=== PATIENT | female | born 1940 | race Caucasian/White ===

== ENCOUNTER 2017-10-30 10:46 | Emergency (ER) | payer MEDICARE, OTHER ==
[~2017-10-30] VITALS: Ht 154.9 cm; Wt 70.3 kg
[~2017-10-30 10:46] MED LIST: ACET325 PO; ALBU3IS INH; ALBU90OI INH; AMLO5 PO; ANORO ELLIPTA1 EACH INH; ASCO500 PO; ASPI325 PO; ASPI81EC; ASPI81EC PO; AZIT250 PO; AZIT500 PO; BENAML10/5; BENZ100A PO; CEPH500 PO; CIPR500 PO; CITA20 PO; CLON.5 PO; CLON1; CLON1 PO; CLOP75 PO; CODACE30 PO; CREON 12000 UNIT PO; CREON DR 12,001 EACH PO; CYCL10 PO; Clotrim Antifun15 GM TP; D3-20002000 UNIT PO; DOCU100 PO; ESTMED1.5T PO; ESTR.1TPBW TOP; ESTRADIOL PO; ESTRADIOL1 MG PO; ESTROVEN; EZET10 PO; FLUC150A PO; FOLI400; GEMF600 PO; HYDACE10B PO; HYDACE5325 PO; HYDCHL12.5 PO; HYDR-86 PO; HYDR1TAB94 PO; Keflex500 MG PO; LAVAP17G PO; LEVFLO500 PO; LIVALO1 MG PO; LIVALO4 MG PO; LOSA50 PO; LOSARTAN PO; METR500 PO; MULVITB PO; Macrobid 100 M100 MG PO; Mobic7.5 MG PO; Multi-Day Vita1 EACH PO; NICO14TP TOP; NYST100SU PO; NYST100SU SS; Norco 10-325 T1 EACH PO; OMEP20ER PO; PANT40 PO; PRAV20; PRED20 PO; PRIM50 PO; PROBIOTIC1 EAC1 PO; PROM25 PO; PROP10 PO; PSYL5.85P PO; Percocet 5-3251 EACH PO; Phenergan/Code480 ML PO; Prednisone20 MG PO; Pyridium200 MG PO; RABE20; SENN187 PO; Super B Comple150 MG PO; TEMA15 PO; TOCO400; VITAMIN D PO; ZINC220 PO; [UNRECOGNIZED DRUG - OTHER] PO; [UNRECOGNIZED DRUG - OTHER] PO
[2018-04-12] MEDS ORDERED: ASPI81CH PO (19:07)
== END 2017-10-30 11:39 | disposition home or self-care (01) ==
LOC: ER 10:46
DX: M79.644 Pain in right finger(s) (principal); I10 Essential (primary) hypertension; M19.90 Unspecified osteoarthritis, unspecified site; K21.9 Gastro-esophageal reflux disease without esophagitis; E78.5 Hyperlipidemia, unspecified; Z88.2 Allergy status to sulfonamides; Z88.5 Allergy status to narcotic agent; Z88.0 Allergy status to penicillin; Z79.82 Long term (current) use of aspirin; Z79.899 Other long term (current) drug therapy; Z79.52 Long term (current) use of systemic steroids; Z90.49 Acquired absence of other specified parts of digestive tract; F17.200 Nicotine dependence, unspecified, uncomplicated
CPT/HCPCS: 29125; 99282

== ENCOUNTER 2018-02-11 05:16 | Emergency (ER) | payer MEDICARE, OTHER ==
[~2018-02-11] VITALS: Ht 147.3 cm; Wt 74.8 kg
[2018-02-11 06:06] LABS: BASOPHILS ABSOLUTE AUTO 0.05 K/mm3 (0.00-0.23); BASOPHILS PERCENT AUTO 1 % (0-2); EOSINOPHILS ABSOLUTE AUTO 0.37 K/mm3 (0.00-0.68); EOSINOPHILS PERCENT AUTO 6 % (0-6); Hematocrit 47.1 % (33.0-51.0); Hemoglobin 14.8 g/dL (11.5-16.0); IMMATURE GRAN ABSOLUTE AUTO 0.04 K/mm3 (0.00-0.10); IMMATURE GRAN PERCENT AUTO 1 % (0-1); LYMPHOCYTES PERCENT AUTO 30 % (21-46); MONOCYTES ABSOLUTE AUTO 0.71 K/mm3 (0.16-1.47); MONOCYTES PERCENT AUTO 11 % (4-13); Mean Corpuscular HGB 29.4 pg (26.0-34.0); Mean Corpuscular HGB Conc 31.4 g/dL (31.5-36.5); Mean Corpuscular Volume 94 fL (80-100); Mean Platelet Volume 9.9 fL (9.1-12.4); NEUTROPHILS ABSOLUTE AUTO 3.47 K/mm3 (1.96-9.15); NEUTROPHILS PERCENT AUTO 52 % (41-73); Platelet Count 169 K/mm3 (150-400); RDW Coefficient Variation 14.7 % (11.7-14.2); RDW Standard Deviation 50.6 fL (35.1-46.3); Red Blood Cell Count 5.04 M/mm3 (3.80-5.20); White Blood Cell Count 6.64 K/mm3 (4.00-11.30)
[2018-02-11 06:23] LABS: Alanine Aminotransfer (ALT/SGP 31 U/L (12-78); Albumin, Blood 3.3 g/dL (3.4-5.0); Albumin/Globulin Ratio 0.9 (0.8-1.8); Alk Phos 67 U/L (50-136); Anion Gap 7 mmol/L (6-16); Aspartate Aminotrans (AST/SGOT 26 U/L (12-37); Bilirubin, Total 0.5 mg/dL (0.1-1.0); Blood Urea Nitrogen 18 mg/dL (8-24); Bun/Creatinine Ratio 17.3 (12.0-20.0); CO2, Blood 27 mmol/L (21-32); Chloride, Blood 109 mmol/L (98-108); Creatinine, Blood 1.04 mg/dL (0.40-1.00); Globulin, Blood 3.6 g/dL (2.2-4.0); Glomerular Filtration Rate 54 (60-); Glucose, Blood 102 mg/dL (70-99); Sodium, Blood 143 mmol/L (136-145); Total Protein, Blood 6.9 g/dL (6.4-8.2); Troponin I <0.015 ng/mL (0.000-0.040)
== END 2018-02-11 08:14 | disposition home or self-care (01) ==
LOC: ER 05:16
PROVIDERS: Emergency Medicine
DX: R07.89 Other chest pain (principal); Z88.0 Allergy status to penicillin; Z88.5 Allergy status to narcotic agent; Z88.2 Allergy status to sulfonamides; Z79.899 Other long term (current) drug therapy; Z79.82 Long term (current) use of aspirin; Z79.52 Long term (current) use of systemic steroids; K21.9 Gastro-esophageal reflux disease without esophagitis; I10 Essential (primary) hypertension; Z86.73 Personal history of transient ischemic attack (TIA), and cerebral infarction without residual deficits; E78.00 Pure hypercholesterolemia, unspecified; I25.10 Atherosclerotic heart disease of native coronary artery without angina pectoris; J44.9 Chronic obstructive pulmonary disease, unspecified
CPT/HCPCS: 36415; 71046; 76775; 80053; 83690; 83880; 84484; 85025; 93005; 93010; 99284

== ENCOUNTER 2018-05-11 09:48 | Day surgery (SDC) | payer MEDICARE, OTHER ==
[~2018-05-11 09:48] MED LIST changes: +ASPI81CH PO
[2018-05-11 11:38] LABS: Performing Lab VERACYTE; Test Name FNA
== END 2018-05-11 23:31 | disposition home or self-care (01) ==
LOC: US 09:48
PROVIDERS: Internal Medicine
DX: E04.1 Nontoxic single thyroid nodule (principal)
CPT/HCPCS: 10022; 76942

== ENCOUNTER 2019-03-15 09:04 | Day surgery (SDC) | payer MEDICARE, OTHER ==
[~2019-03-15] VITALS: Ht 152.4 cm; Wt 66.9 kg
[~2019-03-15 09:04] MED LIST changes: +CREON DR 12,001 EACH; +DICLO GEL1 EACH; +EZET10; +NITR.4SL
== END 2019-03-15 14:38 | disposition home or self-care (01) ==
LOC: ORSCSDS 09:04
PROVIDERS: Orthopaedic Surgery
PROC: 0LX70ZZ Transfer Right Hand Tendon, Open Approach (ICD-10-PCS; principal; 2019-03-15 10:15)
PROC: 0LX50ZZ Transfer Right Lower Arm and Wrist Tendon, Open Approach (ICD-10-PCS; principal; 2019-03-15 10:15)
DX: M18.11 Unilateral primary osteoarthritis of first carpometacarpal joint, right hand (principal); I10 Essential (primary) hypertension; I25.10 Atherosclerotic heart disease of native coronary artery without angina pectoris; J44.9 Chronic obstructive pulmonary disease, unspecified; G47.33 Obstructive sleep apnea (adult) (pediatric); Z87.891 Personal history of nicotine dependence; Z79.899 Other long term (current) drug therapy; Z79.82 Long term (current) use of aspirin
CPT/HCPCS: J1100; J1885; J2370; J2405; J2704; J3010; J3370

== ENCOUNTER → 2019-07-30 | Outpatient (CLI) | payer MEDICARE, OTHER ==
[2019-08-03 15:07] LABS: M-SPIKE, % Not Observed % (Not Observed); PROTEIN,TOTAL,URINE 4.9 mg/dL (Not Estab.)
== END | disposition home or self-care (01) ==
LOC: LAB SHORT 09:16 → LAB 09:16 → LAB FUT 07-27 13:35
PROVIDERS: Internal Medicine
DX: Z00.01 Encounter for general adult medical examination with abnormal findings (principal); R53.81 Other malaise
CPT/HCPCS: 81050; 84166; 86335

== ENCOUNTER 2019-08-26 11:36 | Emergency (ER) | payer MEDICARE, OTHER ==
[~2019-08-26] VITALS: Ht 160 cm; Wt 63.5 kg
== END 2019-08-26 12:22 | disposition home or self-care (01) ==
LOC: ER 11:36
DX: L29.9 Pruritus, unspecified (principal); T50.B95A Adverse effect of other viral vaccines, initial encounter; I10 Essential (primary) hypertension; K21.9 Gastro-esophageal reflux disease without esophagitis; Z86.73 Personal history of transient ischemic attack (TIA), and cerebral infarction without residual deficits; Z87.891 Personal history of nicotine dependence; Z88.0 Allergy status to penicillin; Z88.2 Allergy status to sulfonamides; Z88.8 Allergy status to other drugs, medicaments and biological substances; Z88.5 Allergy status to narcotic agent; Z79.899 Other long term (current) drug therapy; Z79.82 Long term (current) use of aspirin
CPT/HCPCS: 99282; J1100

== ENCOUNTER 2020-07-14 14:50 | Emergency (ER) | payer MEDICARE, OTHER ==
[~2020-07-14] VITALS: Ht 152.4 cm; Wt 64.0 kg
[2020-07-14] MEDS ORDERED: Norco 5-325 Ta1 EACH PO (16:05)
== END 2020-07-14 16:31 | disposition home or self-care (01) ==
LOC: ER 14:50
DX: S82.61XA Displaced fracture of lateral malleolus of right fibula, initial encounter for closed fracture (principal); M25.462 Effusion, left knee; I10 Essential (primary) hypertension; K21.9 Gastro-esophageal reflux disease without esophagitis; Z86.73 Personal history of transient ischemic attack (TIA), and cerebral infarction without residual deficits; Z87.891 Personal history of nicotine dependence; Z79.899 Other long term (current) drug therapy; Z79.82 Long term (current) use of aspirin; W19.XXXA Unspecified fall, initial encounter
CPT/HCPCS: 29505; 73562-LT; 73610; 99283-25; A9270-GY

== ENCOUNTER 2020-12-22 06:15 | Day surgery (SDC) | payer MEDICARE, OTHER ==
[~2020-12-22] VITALS: Ht 149.9 cm; Wt 67.6 kg
[~2020-12-22 06:15] MED LIST changes: +Norco 5-325 Ta1 EACH PO; -PROP10 PO; +PROP80ER PO
--- NOTE | 2020-12-22 10:00 | NUR ---
PT HERE FROM [facility]. PT A/O. PT SITE TO L CHEST SOFT UPON PALPATION. SMALL AMT OF BRUISING, SAME HAS BEEN PER H.C. STAFF. PT REPORTS SMALL AMT OF PAIN AT SITE. PPX4. WIGGLES FINGERS. PT TO HAVE SLING TO ARM PER H.C. STAFF. PT AND FAMILY REPORTS AWARE TO NOT LIFT ARM OVER SHOULDER. PT DENIES HAVING ANY OTHER SORES. PT REPORTS DISCOLORATION TO R FOOT BEEN NORMAL FOR HER, SHE STATES SHE BROKE HER ANKLE BUT THAT IT IS DOING BETTER NOW. SHE REPORTS SHE DID NOT HAVE SURGERY ON IT BUT HAD TO WEAR A BOOT BUT NO LONGER HAS TO WEAR BOOT. PT SPEECH CLEAR. PT REPORTS VOIDING AND HAVING BM'S NORMAL. PT REPORTS HAVING BM THIS AM.
--- NOTE | 2020-12-22 10:30 | NUR ---
SLING PLACED TO L ARM. PT ENCOURAGED TO COUGH AND DEEP BREATH AND USE I/S. PT REPORTS AWARE OF NOT LIFTING L ARM OVER SHOULDER.
--- NOTE | 2020-12-22 18:25 | NUR ---
SHIFT SUMMARY PT HAD PACER PLACED TODAY. PT SITE REMAINS WITH SMALL AMT OF DRAINAGE AND BRUISING. PT SKIN SOFT UPON PALPATION, NO LUMPS OR HARDNESS. PT HAS SLING IN PLACE TO L ARM. PT VOIDED SINCE SURGERY. PT EATING AND DRINKING WELL. PT RIGHT HANDED. PT REPORTS AWARE OF NOT TO RAISE L ARM OVER SHOULDER. CALL LIGHT IN REACH. PT REPORTS PAIN TOLERABLE WITH EARLIER TYLENOL DENIES WANTING ANY OTHER COMFORT MEASURES.
--- NOTE | 2020-12-23 08:41 | NUR ---
SUMMARY PT WAS SEEN BY LOG SNAKER THIS AM. DR VASQUEZ VERB HE WILL BE D/C PT AFTER CONFIRMING INTEGRITY OF PACER HAS BEEN INTERROGATED AND CXR DONE.
--- NOTE | 2020-12-23 09:19 | NUR ---
PT TO X-RAY AT THIS TIME.
--- NOTE | 2020-12-23 12:26 | NUR ---
PACER INTERROGATION COMPLETED BY [facility] RN.
--- NOTE | 2020-12-23 15:55 | NUR ---
DISCHARGE SUMMARY PT A/O X4; PLEASANT AND COOPERATIVE WITH CARE. PT HAD PACEMAKER PLACED YESTERDAY. SINUS RHYTHYM ON TELE. ARM IN SLING TO KEEP HER LEFT SIDE IMMOBILIZED. DRESSING HAS TWO SPOTS OF OLD BLOOD, BUT OTHER THAN THAT C/D/I. CHEST X-RAY AND PACEMAKER INTERROGATION CAME BACK NORMAL. WENT OVER PACEMAKER DISCHARGE INSTUCTIONS WITH PATIENT AND SHE EXPRESSED UNDERSTANDING. VSS; PATIENT WENT HOME WITH SISTER.
--- NOTE | 2020-12-23 16:02 | NUR ---
PACEMAKER DELIVERY CREW WORKER INTERROGATED THE PACEMAKER AND IT CAME BACK NORMAL.
== END 2020-12-23 15:22 | disposition home or self-care (01) ==
LOC: MHTC 06:15 → SURS 10:02 → MHTC 12-23 15:22
DX: I47.1 Supraventricular tachycardia (principal); I45.5 Other specified heart block; I47.2 Ventricular tachycardia; I46.9 Cardiac arrest, cause unspecified; I49.5 Sick sinus syndrome; I70.90 Unspecified atherosclerosis; I71.4 Abdominal aortic aneurysm, without rupture; I35.0 Nonrheumatic aortic (valve) stenosis; I25.10 Atherosclerotic heart disease of native coronary artery without angina pectoris; R25.1 Tremor, unspecified; E78.5 Hyperlipidemia, unspecified; I12.9 Hypertensive chronic kidney disease with stage 1 through stage 4 chronic kidney disease, or unspecified chronic kidney disease; N18.9 Chronic kidney disease, unspecified; K21.9 Gastro-esophageal reflux disease without esophagitis; Z88.1 Allergy status to other antibiotic agents; Z88.2 Allergy status to sulfonamides; Z88.5 Allergy status to narcotic agent; Z88.8 Allergy status to other drugs, medicaments and biological substances
CPT/HCPCS: 33208; 71045; 71046; 76937; 99152; 99153; A9270; C1785; C1894; C1898; J1644; J2250; J3010; J3370; J7030; J7040; J7050

== ENCOUNTER 2021-03-21 08:39 | Day surgery (SDC) | payer MEDICARE, OTHER ==
[~2021-03-21] VITALS: Ht 147.3 cm; Wt 66.0 kg
[2021-03-21] MEDS ORDERED: AMLO5 (09:06)
== END 2021-03-21 10:44 | disposition home or self-care (01) ==
LOC: ORSCSDS 08:39
PROVIDERS: Internal Medicine Gastroenterology
PROC: 0DBL8ZX Excision of Transverse Colon, Via Natural or Artificial Opening Endoscopic, Diagnostic (ICD-10-PCS; principal; 2021-03-21 10:00)
DX: Z12.11 Encounter for screening for malignant neoplasm of colon (principal); Z86.010 Personal history of colon polyps; D12.3 Benign neoplasm of transverse colon; K64.8 Other hemorrhoids; I10 Essential (primary) hypertension; J44.9 Chronic obstructive pulmonary disease, unspecified; I49.5 Sick sinus syndrome; Z95.0 Presence of cardiac pacemaker; F17.210 Nicotine dependence, cigarettes, uncomplicated; Z79.82 Long term (current) use of aspirin; Z79.899 Other long term (current) drug therapy; N18.9 Chronic kidney disease, unspecified
CPT/HCPCS: 88305; J2704; J7120

== ENCOUNTER 2022-05-16 12:58 | Inpatient (IN) | payer MEDICARE, OTHER ==
[~2022-05-16] VITALS: Ht 149.9 cm; Wt 73.2 kg
[~2022-05-16 12:58] MED LIST changes: +AMLO5
[2022-05-16 14:14] LABS: Albumin, Blood 3.3 g/dL (3.4-5.0); Albumin/Globulin Ratio 0.9 (0.8-1.8); Bilirubin, Total 0.9 mg/dL (0.1-1.0); Bun/Creatinine Ratio 23.1 (12.0-20.0); Calcium, Blood 10.1 mg/dL (8.5-10.1); Creatinine, Blood 1.3 mg/dL (0.40-1.00); Globulin, Blood 3.8 g/dL (2.2-4.0); Potassium, Blood 4.4 mmol/L (3.5-5.5); Total Protein, Blood 7.1 g/dL (6.4-8.2)
[2022-05-16 14:17] LABS: BASOPHILS ABSOLUTE AUTO 0.05 K/mm3 (0.00-0.23); BASOPHILS PERCENT AUTO 1 % (0-2); EOSINOPHILS ABSOLUTE AUTO 0.28 K/mm3 (0.00-0.68); EOSINOPHILS PERCENT AUTO 3 % (0-6); Hematocrit 46.8 % (33.0-51.0); Hemoglobin 14.6 g/dL (11.5-16.0); IMMATURE GRAN ABSOLUTE AUTO 0.06 K/mm3 (0.00-0.10); IMMATURE GRAN PERCENT AUTO 1 % (0-1); LYMPHOCYTES ABSOLUTE AUTO 1.37 K/mm3 (0.84-5.20); LYMPHOCYTES PERCENT AUTO 15 % (21-46); MONOCYTES ABSOLUTE AUTO 1.03 K/mm3 (0.16-1.47); MONOCYTES PERCENT AUTO 12 % (4-13); Mean Corpuscular HGB 28.9 pg (26.0-34.0); Mean Corpuscular HGB Conc 31.2 g/dL (31.5-36.5); Mean Corpuscular Volume 93 fL (80-100); Mean Platelet Volume 9.6 fL (9.1-12.4); NEUTROPHILS ABSOLUTE AUTO 6.11 K/mm3 (1.96-9.15); NEUTROPHILS PERCENT AUTO 69 % (41-73); Platelet Count 162 K/mm3 (150-400); RDW Coefficient Variation 17.2 % (11.7-14.2); RDW Standard Deviation 57.7 fL (35.1-46.3); Red Blood Cell Count 5.06 M/mm3 (3.80-5.20)
[2022-05-16 14:55] LABS: Influenza A, PCR NEGATIVE (NEGATIVE); Influenza B, PCR NEGATIVE (NEGATIVE); Resp Syncytial Virus, PCR NEGATIVE (NEGATIVE); SARS-Cov-2 (COVID-19) PCR, MMC NEGATIVE (NEGATIVE)
--- NOTE | 2022-05-16 18:30 | NUR ---
SHIFT SUMMARY: PT ARRIVES FROM ED WITH 8L VIA OXYMIZER. SOB ON EXERTION, TAKING BREATHS BETWEEN WORDS. DISCUSSED WITH LAND MOBILE RADIO TECHNICIAN AND CALLED DR CHICAS FOR ARLETH FOR PT'S SAFETY DUE TO INCREASED DYSPNEA WITH EXERTION AND LASIX SCHEDULED. PT'S SISTER AT BEDSIDE AND HAS BEEN UPDATED ON STATUS. CALL LIGHT IN REACH, NO ACUTE NEEDS OR CONCERNS AT THIS TIME.
[2022-05-17 05:20] LABS: BASOPHILS ABSOLUTE AUTO 0.04 K/mm3 (0.00-0.23); BASOPHILS PERCENT AUTO 0 % (0-2); EOSINOPHILS ABSOLUTE AUTO 0.13 K/mm3 (0.00-0.68); EOSINOPHILS PERCENT AUTO 1 % (0-6); Hematocrit 48.2 % (33.0-51.0); Hemoglobin 14.8 g/dL (11.5-16.0); IMMATURE GRAN ABSOLUTE AUTO 0.07 K/mm3 (0.00-0.10); IMMATURE GRAN PERCENT AUTO 1 % (0-1); LYMPHOCYTES PERCENT AUTO 6 % (21-46); MONOCYTES PERCENT AUTO 11 % (4-13); Mean Corpuscular HGB 28.1 pg (26.0-34.0); Mean Corpuscular HGB Conc 30.7 g/dL (31.5-36.5); Mean Corpuscular Volume 92 fL (80-100); Mean Platelet Volume 9.7 fL (9.1-12.4); NEUTROPHILS ABSOLUTE AUTO 9.24 K/mm3 (1.96-9.15); NEUTROPHILS PERCENT AUTO 81 % (41-73); Platelet Count 153 K/mm3 (150-400); RDW Standard Deviation 55.8 fL (35.1-46.3); Red Blood Cell Count 5.26 M/mm3 (3.80-5.20); White Blood Cell Count 11.38 K/mm3 (4.00-11.30)
[2022-05-17 05:53] LABS: Albumin, Blood 3.4 g/dL (3.4-5.0); Anion Gap 5 mmol/L (6-16); Blood Urea Nitrogen 30 mg/dL (8-24); Bun/Creatinine Ratio 23.8 (12.0-20.0); CO2, Blood 35 mmol/L (21-32); Calcium, Blood 10.5 mg/dL (8.5-10.1); Chloride, Blood 101 mmol/L (98-108); Creatinine, Blood 1.26 mg/dL (0.40-1.00); Glomerular Filtration Rate 43 (60-); Glucose, Blood 128 mg/dL (70-99); Phosphorus, Blood 4.2 mg/dL (2.5-4.9); Potassium, Blood 3.9 mmol/L (3.5-5.5); Sodium, Blood 141 mmol/L (136-145)
--- NOTE | 2022-05-17 07:28 | NUR ---
AT START OF SHIFT PT ON OXYMIZER 8L WITH LOW 90 SATURATIONS. ONCE PT ASLEEP OXYGEN NOTED TO BE LOW 85%. OXYGEN INCREASED TO 9L WITH GOOD SATURATIONS. PT REPORTING SHE NEEDED TO HAVE A BM AND STATED SHE COULD NOT USE BEDPAN SHE NEEDED TO SIT UP. PT PLACED ON BSC AND PT DESAT. LOW 78%. OXYGEN INCRASED TO 11L AND PT QUICKLY RECOVERED. AFTERWARDS OXYGEN TITRATED BETWEEN 9-11L AT TIMES PT OXYGEN WOULD BE 98% HOWEVER ONCE DECRASED TO 9L OXYGEN WOULD DROP TO 86%. PT AT THIS TIME ON 10L VIA OXYMIZER WITH LOW 90S SATURATIONS. PT SLEPT T/O THE NIGHT AND THIS MORNING STATED "THIS IS THE BEST SLEEP I'VE HAD." PT A/OX4 VERY PLEASANT AND DELROY TO MAKE NEEDS KNOWN.
--- NOTE | 2022-05-17 13:35 | NUR ---
Pt. is sitting up on side of bed, having just completed lunch. Pt. welcomes my visit. Pt. is pleasant and rapport is easily established. Pt. is unsettled about a clear prognosis and treatment moving forward. Listen empathetically and normalize the Pt. experience. [place] with pt. Pt. verbalizes graitiude for the spiritual care visit.
--- NOTE | 2022-05-17 18:13 | NUR ---
SHIFT SUMMARY PT A&O X4 AND IN PLEASENT MOOD T/O SHIFT. PT TOLERATING PO INTAKE WELL, 3L NC. FAMILY IN TO SEE PT T/O VISITING HOURS. PURE WICK IN PLACE, CONT. LASIX. CALL LIGHT W/IN REACH. VSS. CONRAD HOARSE PAIN NOTED T/O SHIFT.
--- NOTE | 2022-05-18 02:33 | NUR ---
ASSUMED CARE OF PT AT 0200. PER REPORT DUE TO PT LOW SATURATIONS PT PLACED BACK ON OXYMIZER 11L. PT CURRENTLY 90-93 SATS. PT UP TO BSC WITH DESAT TO 79% HOWEVER ONCE AT REST EASILY RECOVERED. PT A/OX4 IN NO DISTRESS AND DELROY TO MAKE NEEDS KNOWN.
--- NOTE | 2022-05-18 07:33 | NUR ---
PT REMAINED ON 11L VIA OXYMIZER. PT WITH NO CHANGES IN ASSESSMENT FROM PREVIOUS RN. PT A/0X4, VERY PLEASANT AND DLEROY TO MAKE NEEDS KNOWN. PT 1 ASSIT TO BSC. DESATS WITH ACTIVITY HOWEVER EASILY RECOVERS. PUREWICK IN PLACE WITH GOOD URINE OUTPUT.
[2022-05-18] MEDS ORDERED: CREON DR 12,001 EACH PO (08:49)
[2022-05-18] MEDS ORDERED: TIOT18 INH (08:50)
[2022-05-18] MEDS ORDERED: Spiriva Respimat INH (10:45)
--- NOTE | 2022-05-18 17:39 | NUR ---
SHIFT SUMMARY PT REPORTS THAT SOB AND CHEST TIGHTNESS IS IMPROVED, BUT THAT SHE FEELS " NOT HERSELF" DUE TO CHANGES IN HOME MEDS. DR NOTIFIED OF MED REC AND NEW MEDICATIONS ENTERED. FEET HAVE SOME TRACE EDEMA, AND ARE COLD AND RED. PT STATES SHE NEEDS BLE STENTS PLACED, BUT IS WAITING FOR AN UPDATE FROM INSURANCE. SHE HAS BEEN ABLE TO GET UP INTO THE CHAIR AND TO THE BEDSIDE COMMODE WITHOUT SIGNIFICANT SOB. BED IN LOWEST POSITION AND CALL LIGHT IN REACH
--- NOTE | 2022-05-19 04:49 | NUR ---
CASINO OPERATIONS SUPERVISOR SUMMARY VSS. HAS BEEN RESTING QUIETLY WITH OCCASIONAL INTERRUPTIONS. VOICED "CHARLEY HORSES" IN LEFT LEG. MASSAGED LEG. REFUSED PAIN MEDS, VOICED THE PAIN WAS QUICK TO LEAVE. REQUESTED "POTASSIUM" TO HELP WTH THE CRAMPS. O2 PER OXYMIZER AT 11 L/MIN. PUREWICK IN USE. CALL LIGHT IN REACH. O2 SATS IN THE 90'S. WILL ASK AM SHIFT TO FOLLOW UP WITH K+ WITH .
[2022-05-19 05:40] LABS: Hematocrit 50.4 % (33.0-51.0); Hemoglobin 15.7 g/dL (11.5-16.0); Mean Corpuscular HGB 28.3 pg (26.0-34.0); Mean Corpuscular HGB Conc 31.2 g/dL (31.5-36.5); Mean Corpuscular Volume 91 fL (80-100); Mean Platelet Volume 9.8 fL (9.1-12.4); Platelet Count 138 K/mm3 (150-400); RDW Coefficient Variation 16.5 % (11.7-14.2); RDW Standard Deviation 54.7 fL (35.1-46.3); Red Blood Cell Count 5.55 M/mm3 (3.80-5.20); White Blood Cell Count 7.89 K/mm3 (4.00-11.30)
[2022-05-19 06:35] LABS: Albumin, Blood 3.2 g/dL (3.4-5.0); Albumin/Globulin Ratio 0.8 (0.8-1.8); Bilirubin, Total 0.9 mg/dL (0.1-1.0); Bun/Creatinine Ratio 27.3 (12.0-20.0); Calcium, Blood 9.7 mg/dL (8.5-10.1); Creatinine, Blood 1.61 mg/dL (0.40-1.00); Globulin, Blood 4.1 g/dL (2.2-4.0); Magnesium, Blood 1.8 mg/dL (1.6-2.4); Thyroid Stimulating Hormone 1.36 uIU/mL (0.360-4.800); Total Protein, Blood 7.3 g/dL (6.4-8.2)
--- NOTE | 2022-05-19 18:01 | NUR ---
PATIENT WEANED DOWN TO 3LO2 VIA OXYMIZER. DOES DESAT WITH ACTIVITY AND NEEDS 7LO2 WITH EXERTION TO MAINTAIN SATS. A/OX4, UP WITH SBA. CONTINUES TO RECEIVE LASIX. PUREWICK PLACED FOR A FEW HOURS AFTER LASIX GIVEN AT PATIENT REQUEST DUE TO FREQUENCY AND SOB AND DESATURATION WITH ACTIVITY. PATIENT CALM AND COOPERATIVE WITH CARE, ABLE TO MAKE NEEDS KNOWN.
--- NOTE | 2022-05-20 03:33 | NUR ---
CYBER SOFTWARE ENGINEER SUMMARY HAS BEEN RESTING WITH OCCASIONAL COUGHING EPISODES WITH O2 PER OXYMIZER. O2 SATS PER CONT PULSE OX. USUALLY IN THE 90'S BUT WHEN COUGHING, DROPS INTO THE MID 80'S. CURRENTLY RESTING QUIETLY. PUREWICK IN USE. URINE CLEAR ELISEO. VSS. CALL LIGHT IN REACH.
[2022-05-20 05:11] LABS: Hematocrit 49.2 % (33.0-51.0); Hemoglobin 15.3 g/dL (11.5-16.0); Mean Corpuscular HGB 28.3 pg (26.0-34.0); Mean Corpuscular HGB Conc 31.1 g/dL (31.5-36.5); Mean Corpuscular Volume 91 fL (80-100); Mean Platelet Volume 9.7 fL (9.1-12.4); Platelet Count 151 K/mm3 (150-400); RDW Coefficient Variation 16.4 % (11.7-14.2); RDW Standard Deviation 54.8 fL (35.1-46.3); White Blood Cell Count 8.14 K/mm3 (4.00-11.30)
[2022-05-20 05:32] LABS: Bun/Creatinine Ratio 36.9 (12.0-20.0); Calcium, Blood 9.6 mg/dL (8.5-10.1); Creatinine, Blood 1.41 mg/dL (0.40-1.00); Potassium, Blood 4.2 mmol/L (3.5-5.5)
--- NOTE | 2022-05-20 18:13 | NUR ---
DAYSHIFT SUMMARY Patient doing well today, no acute changes to status. RT switched pt to high flow NC 3L, saturations stable with oxygen. Patient independent in room, no SOB observed with ambulation. Patient refused AM Lovenox, complained that ABD is sore and it hruts when she coughs. Vitals stable, Evening propanolol held d/t soft SBP, HR of 66.
--- NOTE | 2022-05-21 04:11 | NUR ---
SHIFT SUMMARY PT PLEASANT AND COOPERATIVE WITH CARE. PT STS SHE WOULD LOVE TO GO HOME TO HER DOG. PT ON 3-4L O2 VIA NC, SATS ARE IN THE 90'S. PT SPENDS TIME IN BED AND IN HER CHAIR WATCHING TELEVISION MOST OF THE NIGHT. PT HAS NO COMPLAINTS AT THIS TIME. PT GETS UP TO THE BEDSIDE COMMODE INDEPENDENTLY. CALL LIGHT IS WITHIN HER REACH.
[2022-05-21 05:15] LABS: Hematocrit 49.4 % (33.0-51.0); Hemoglobin 15.3 g/dL (11.5-16.0); Mean Corpuscular HGB 28.3 pg (26.0-34.0); Mean Corpuscular Volume 91 fL (80-100); Mean Platelet Volume 9.9 fL (9.1-12.4); Platelet Count 152 K/mm3 (150-400); RDW Coefficient Variation 16.5 % (11.7-14.2); Red Blood Cell Count 5.41 M/mm3 (3.80-5.20); White Blood Cell Count 6.99 K/mm3 (4.00-11.30)
[2022-05-21 05:36] LABS: Albumin, Blood 3.2 g/dL (3.4-5.0); Albumin/Globulin Ratio 0.8 (0.8-1.8); Bilirubin, Total 0.7 mg/dL (0.1-1.0); Calcium, Blood 9.2 mg/dL (8.5-10.1); Creatinine, Blood 1.59 mg/dL (0.40-1.00); Globulin, Blood 3.9 g/dL (2.2-4.0); Potassium, Blood 4.3 mmol/L (3.5-5.5); Total Protein, Blood 7.1 g/dL (6.4-8.2)
--- NOTE | 2022-05-21 18:00 | NUR ---
SHIFT SUMMARY PT AXO, PLEASANT AND COOPERATIVE WITH CARE. INDEPENDENT IN ROOM. ON 4L VIA NC. VSS. PT CONTINUES TO DESAT WITH EXERTION. PHYSICAL THERAPY ASSESSED PATIENT, SEE NOTE. PT DENIES PAIN AND N/V. NO ACUTE CHANGES THIS SHIFT. PT UP TO CHAIR THROUGHOUT THE DAY AND FOR MEALS. MOTIVATED TO BE DISCHARGED HOME. BED IN LOW POSITION, CALL LIGHT WITHIN REACH.
[2022-05-22 05:03] LABS: Hematocrit 46.8 % (33.0-51.0); Hemoglobin 14.5 g/dL (11.5-16.0); Mean Corpuscular HGB 28.2 pg (26.0-34.0); Mean Corpuscular Volume 91 fL (80-100); Mean Platelet Volume 9.5 fL (9.1-12.4); Platelet Count 147 K/mm3 (150-400); RDW Coefficient Variation 16.4 % (11.7-14.2); RDW Standard Deviation 54.3 fL (35.1-46.3); Red Blood Cell Count 5.15 M/mm3 (3.80-5.20); White Blood Cell Count 7.28 K/mm3 (4.00-11.30)
--- NOTE | 2022-05-22 05:14 | NUR ---
SHIFT SUMMARY PT COOPERATIVE AND PLEASANT. PT HAS HAD NO COMPLAINTS THIS EVENING AND HAS BEEN SLEEPING OFF AND ON TONIGHT. PT CONTINUES ON 4L OF O2 VIA NC. PT CONTINUES TO BE INDEPENDENT TO THE COMMODE. PT HAS CALL LIGHT WITHIN HER REACH.
[2022-05-22 05:52] LABS: Albumin, Blood 3.2 g/dL (3.4-5.0); Bilirubin, Total 0.5 mg/dL (0.1-1.0); Calcium, Blood 8.9 mg/dL (8.5-10.1); Creatinine, Blood 1.54 mg/dL (0.40-1.00); Globulin, Blood 3.3 g/dL (2.2-4.0); Potassium, Blood 4.3 mmol/L (3.5-5.5); Total Protein, Blood 6.5 g/dL (6.4-8.2)
[2022-05-22] MEDS ORDERED: FURO20 PO (10:20)
[2022-05-22] MEDS ORDERED: Flonase 0.05% N16 GM (10:20)
--- NOTE | 2022-05-22 15:14 | NUR ---
SUMMARY- PT DISCHARGED HOME WITH DC INSTRUCTIONS. HOME O2 EVAL COMPLETE AND PT SET UP WITH PORTABLE OXYGEN FOR THE RIDE HOME AND SOMEONE TO MEET HER AT HER HOME WITH A CONCENTRATOR. TX TO PRIVATE CAR IN A WHEELCHAIR, STAFF TX OUTSIDE. SENT HOME WITH BELONGINGS.
== END 2022-05-22 15:00 | disposition home or self-care (01) | DRG 291 ==
LOC: ER 12:58 → MEDS 17:29
PROVIDERS: Emergency Medicine; Internal Medicine; Physician Assistant; ADMIT Internal Medicine
DX: I11.0 Hypertensive heart disease with heart failure (principal); I50.33 Acute on chronic diastolic (congestive) heart failure; J96.01 Acute respiratory failure with hypoxia; N17.9 Acute kidney failure, unspecified; K21.9 Gastro-esophageal reflux disease without esophagitis; Z20.822 Contact with and (suspected) exposure to COVID-19; M19.90 Unspecified osteoarthritis, unspecified site; G25.81 Restless legs syndrome; E78.5 Hyperlipidemia, unspecified; I73.9 Peripheral vascular disease, unspecified; E88.81 Metabolic syndrome and other insulin resistance; E66.9 Obesity, unspecified; R73.03 Prediabetes; I27.20 Pulmonary hypertension, unspecified; Z68.32 Body mass index [BMI] 32.0-32.9, adult; Z86.73 Personal history of transient ischemic attack (TIA), and cerebral infarction without residual deficits; Z87.19 Personal history of other diseases of the digestive system; Z98.891 History of uterine scar from previous surgery; Z90.49 Acquired absence of other specified parts of digestive tract; Z98.890 Other specified postprocedural states; Z87.891 Personal history of nicotine dependence; Z95.0 Presence of cardiac pacemaker; Z88.0 Allergy status to penicillin; Z88.2 Allergy status to sulfonamides; Z88.5 Allergy status to narcotic agent; Z88.8 Allergy status to other drugs, medicaments and biological substances; Z79.51 Long term (current) use of inhaled steroids; Z79.82 Long term (current) use of aspirin; Z79.899 Other long term (current) drug therapy
CPT/HCPCS: 0241U; 36415; 71046; 80048; 80053; 80069; 83036; 83735; 83880; 84443; 84484; 85025; 85027; 93005; 93010; 94640; 94664; 94760; 94761; 94762; 96374; 97116; 97161; 99285-25; A9270; J1120; J1650; J1940

== ENCOUNTER 2023-04-10 14:26 | Day surgery (SDC) | payer MEDICARE, OTHER ==
[~2023-04-10] VITALS: Ht 149.9 cm; Wt 64.8 kg
[~2023-04-10 14:26] MED LIST changes: +FURO20 PO; +Flonase 0.05% N16 GM; +Spiriva Respimat INH; +TIOT18 INH
[2023-04-10] MEDS ORDERED: Vitamin B Comple1 EA (15:12)
[2023-04-10 15:19] VITALS: BP 117/55
--- NOTE | 2023-04-10 16:59 | NUR ---
04/10/23 4151 Katt Valenzuela WHEN PT BROUGHT TO OR, SATS 82-88% ON RA. INCREASE TO 99-100% ON O2. PT REPORTED RESPIRATORY ILLNESS TO ANESTHESIOLOGIST STATING SHE HAS BEEN HAVING SOME RESPIRATORY SYMPTOMS FOR APPROXIMATELY 2 WEEKS. LUNGS WERE CLEAR PRIOR TO OR. PROCEDURE CANCELLED, BROUGHT BACK TO ROOM. PORTABLE CHEST X-RAY DONE, REVIEWED BY ANESTHESIOLOGIST, PT INSTRUCTED TO FOLLOW UP WITH PCP FOR RESPIRATORY SYMPTOMS. NEPHEW AT BEDSIDE. IV DC'D CATH INTACT. AMBULATES WITHOUT DIFFICULTY TO EXIT WITH NEPHEW. PT VERBALIZES INTENT TO SEE PCP RADHA.
--- NOTE | 2023-04-10 17:03 | NUR ---
04/10/23 1703 Katt Valenzuela PROCEDURE NOT STARTED DUE TO LOW 02 SATS AND RESPIRATORY SYMPTOMS
== END 2023-04-10 16:51 | disposition home or self-care (01) ==
LOC: ORSCSDS 14:26
PROVIDERS: Internal Medicine Gastroenterology
PROC: 0DJ08ZZ Inspection of Upper Intestinal Tract, Via Natural or Artificial Opening Endoscopic (ICD-10-PCS; principal; 2023-04-10 15:45)
DX: R13.10 Dysphagia, unspecified (principal); J44.9 Chronic obstructive pulmonary disease, unspecified; Z95.0 Presence of cardiac pacemaker; E78.5 Hyperlipidemia, unspecified; I71.40 Abdominal aortic aneurysm, without rupture, unspecified; Z86.73 Personal history of transient ischemic attack (TIA), and cerebral infarction without residual deficits; Z72.0 Tobacco use; I12.9 Hypertensive chronic kidney disease with stage 1 through stage 4 chronic kidney disease, or unspecified chronic kidney disease; N18.30 Chronic kidney disease, stage 3 unspecified; Z79.899 Other long term (current) drug therapy
CPT/HCPCS: 71045; J0461; J2001; J2405; J2704; J7120; Q9968

== ENCOUNTER 2023-10-12 06:05 | Emergency (ER) | payer MEDICARE, OTHER ==
[~2023-10-12] VITALS: Ht 147.3 cm; Wt 68.0 kg
[~2023-10-12 06:05] MED LIST changes: +Vitamin B Comple1 EA
[2023-10-12 07:09] LABS: BASOPHILS ABSOLUTE AUTO 0.05 K/mm3 (0.00-0.23); BASOPHILS PERCENT AUTO 1 % (0-2); EOSINOPHILS ABSOLUTE AUTO 0.34 K/mm3 (0.00-0.68); EOSINOPHILS PERCENT AUTO 3 % (0-6); Hematocrit 46.1 % (33.0-51.0); Hemoglobin 14.7 g/dL (11.5-16.0); IMMATURE GRAN ABSOLUTE AUTO 0.08 K/mm3 (0.00-0.10); IMMATURE GRAN PERCENT AUTO 1 % (0-1); LYMPHOCYTES ABSOLUTE AUTO 1.13 K/mm3 (0.84-5.20); LYMPHOCYTES PERCENT AUTO 11 % (21-46); MONOCYTES ABSOLUTE AUTO 0.86 K/mm3 (0.16-1.47); MONOCYTES PERCENT AUTO 8 % (4-13); Mean Corpuscular HGB 30.9 pg (26.0-34.0); Mean Corpuscular HGB Conc 31.9 g/dL (31.5-36.5); Mean Corpuscular Volume 97 fL (80-100); Mean Platelet Volume 9.7 fL (9.1-12.4); NEUTROPHILS ABSOLUTE AUTO 7.88 K/mm3 (1.96-9.15); NEUTROPHILS PERCENT AUTO 76 % (41-73); Platelet Count 145 K/mm3 (150-400); RDW Coefficient Variation 15.5 % (11.7-14.2); RDW Standard Deviation 55.7 fL (35.1-46.3); Red Blood Cell Count 4.75 M/mm3 (3.80-5.20); White Blood Cell Count 10.34 K/mm3 (4.00-11.30)
[2023-10-12 07:30] LABS: Albumin, Blood 3.3 g/dL (3.4-5.0); Albumin/Globulin Ratio 0.8 (0.8-1.8); Bilirubin, Total 0.5 mg/dL (0.1-1.0); Bun/Creatinine Ratio 27.7 (12.0-20.0); Calcium, Blood 9.6 mg/dL (8.5-10.1); Creatinine, Blood 1.41 mg/dL (0.40-1.00); Globulin, Blood 4.1 g/dL (2.2-4.0); Potassium, Blood 4.8 mmol/L (3.5-5.5); Total Protein, Blood 7.4 g/dL (6.4-8.2)
[2023-10-12 10:42] VITALS: BP 127/68
== END 2023-10-12 10:30 | disposition home or self-care (01) ==
LOC: ER 06:05
PROVIDERS: Emergency Medicine
DX: M25.551 Pain in right hip (principal); E87.70 Fluid overload, unspecified; I71.40 Abdominal aortic aneurysm, without rupture, unspecified; I11.0 Hypertensive heart disease with heart failure; I50.9 Heart failure, unspecified; K21.9 Gastro-esophageal reflux disease without esophagitis; G25.81 Restless legs syndrome; Z86.73 Personal history of transient ischemic attack (TIA), and cerebral infarction without residual deficits; Z87.891 Personal history of nicotine dependence; Z88.0 Allergy status to penicillin; Z88.2 Allergy status to sulfonamides; Z88.8 Allergy status to other drugs, medicaments and biological substances; Z88.5 Allergy status to narcotic agent; Z79.899 Other long term (current) drug therapy; Z79.82 Long term (current) use of aspirin
CPT/HCPCS: 74176; 80053; 83880; 85025; 93005; 93010; 96374; 96375; 99284-25; J1200; J1940; J2270; J2405

== ENCOUNTER 2023-10-12 20:09 | Inpatient (IN) | payer MEDICARE, OTHER ==
[~2023-10-12] VITALS: Ht 152.4 cm; Wt 69.8 kg
[2023-10-12 20:45] LABS: BASOPHILS ABSOLUTE AUTO 0.06 K/mm3 (0.00-0.23); BASOPHILS PERCENT AUTO 1 % (0-2); EOSINOPHILS PERCENT AUTO 0 % (0-6); Hematocrit 47.5 % (33.0-51.0); Hemoglobin 14.9 g/dL (11.5-16.0); IMMATURE GRAN ABSOLUTE AUTO 0.14 K/mm3 (0.00-0.10); IMMATURE GRAN PERCENT AUTO 2 % (0-1); LYMPHOCYTES ABSOLUTE AUTO 0.77 K/mm3 (0.84-5.20); LYMPHOCYTES PERCENT AUTO 8 % (21-46); MONOCYTES ABSOLUTE AUTO 0.48 K/mm3 (0.16-1.47); MONOCYTES PERCENT AUTO 5 % (4-13); Mean Corpuscular HGB 30.8 pg (26.0-34.0); Mean Corpuscular HGB Conc 31.4 g/dL (31.5-36.5); Mean Corpuscular Volume 98 fL (80-100); Mean Platelet Volume 9.3 fL (9.1-12.4); NEUTROPHILS ABSOLUTE AUTO 8.02 K/mm3 (1.96-9.15); NEUTROPHILS PERCENT AUTO 85 % (41-73); Platelet Count 148 K/mm3 (150-400); RDW Coefficient Variation 15.8 % (11.7-14.2); RDW Standard Deviation 57.2 fL (35.1-46.3); Red Blood Cell Count 4.84 M/mm3 (3.80-5.20); White Blood Cell Count 9.47 K/mm3 (4.00-11.30)
[2023-10-12 20:46] LABS: Base Excess Venous 1.8 mmol/L; Bicarbonate Venous 24.1 mmol/L (24.0-30.0); PCO2 Venous 56.5 mmHg (38-42); pH Blood Venous 7.31 (7.34-7.37)
[2023-10-12 21:12] LABS: Albumin, Blood 3.3 g/dL (3.4-5.0); Albumin/Globulin Ratio 0.8 (0.8-1.8); Bilirubin, Total 0.9 mg/dL (0.1-1.0); Bun/Creatinine Ratio 26.5 (12.0-20.0); Calcium, Blood 9.8 mg/dL (8.5-10.1); Creatinine, Blood 1.62 mg/dL (0.40-1.00); Globulin, Blood 4.3 g/dL (2.2-4.0); Potassium, Blood 5.7 mmol/L (3.5-5.5); Total Protein, Blood 7.6 g/dL (6.4-8.2)
[2023-10-13 00:50] LABS: Anti-Xa UFH, PHA Monitoring <0.10 IU/mL; International Normalized Ratio 1.04; Prothrombin Time Results 10.9 Sec (9.7-11.5)
[2023-10-13 01:06] VITALS: BP 111/61
[2023-10-13 01:41] LABS: Base Excess Venous 0.8 mmol/L; Bicarbonate Venous 24.7 mmol/L (24.0-30.0); PCO2 Venous 45.5 mmHg (38-42); pH Blood Venous 7.37 (7.34-7.37)
[2023-10-13 01:57] LABS: BASOPHILS ABSOLUTE AUTO 0.05 K/mm3 (0.00-0.23); BASOPHILS PERCENT AUTO 0 % (0-2); EOSINOPHILS ABSOLUTE AUTO 0.01 K/mm3 (0.00-0.68); EOSINOPHILS PERCENT AUTO 0 % (0-6); Hematocrit 41.1 % (33.0-51.0); Hemoglobin 13.2 g/dL (11.5-16.0); IMMATURE GRAN ABSOLUTE AUTO 0.17 K/mm3 (0.00-0.10); IMMATURE GRAN PERCENT AUTO 2 % (0-1); LYMPHOCYTES ABSOLUTE AUTO 1.27 K/mm3 (0.84-5.20); LYMPHOCYTES PERCENT AUTO 11 % (21-46); MONOCYTES ABSOLUTE AUTO 0.96 K/mm3 (0.16-1.47); MONOCYTES PERCENT AUTO 9 % (4-13); Mean Corpuscular HGB 31.1 pg (26.0-34.0); Mean Corpuscular HGB Conc 32.1 g/dL (31.5-36.5); Mean Corpuscular Volume 97 fL (80-100); Mean Platelet Volume 9.9 fL (9.1-12.4); NEUTROPHILS ABSOLUTE AUTO 8.68 K/mm3 (1.96-9.15); NEUTROPHILS PERCENT AUTO 78 % (41-73); Platelet Count 136 K/mm3 (150-400); RDW Coefficient Variation 15.6 % (11.7-14.2); Red Blood Cell Count 4.24 M/mm3 (3.80-5.20); White Blood Cell Count 11.14 K/mm3 (4.00-11.30)
[2023-10-13 01:59] LABS: Albumin/Globulin Ratio 0.8 (0.8-1.8); Bilirubin, Total 0.7 mg/dL (0.1-1.0); Bun/Creatinine Ratio 26.6 (12.0-20.0); Calcium, Blood 9.3 mg/dL (8.5-10.1); Creatinine, Blood 1.69 mg/dL (0.40-1.00); Globulin, Blood 3.8 g/dL (2.2-4.0); Total Protein, Blood 6.8 g/dL (6.4-8.2)
[2023-10-13 04:17] VITALS: BP 100/59
[2023-10-13 07:22] VITALS: BP 130/55
[2023-10-13 11:05] VITALS: BP 111/49
--- NOTE | 2023-10-13 11:54 | NUR ---
UPDATE PT COUGHED UP BRIGHT RED BLOODY SPUTUM. DR. TINEO CALLED AND NOTIFED. PT CONTINUES TO REQUIRE 10L NC TO KEEP SATS >90%. BP STABLE. HR REMAINS PACED AT 60. PT SITTING UP AT EDGE OF BED EATING LUNCH. AWAITING VQ SCAN. HEP GETT INFUSING PER ORDERS
[2023-10-13 16:10] VITALS: BP 119/56
--- NOTE | 2023-10-13 16:48 | NUR ---
SHIFT SUMMARY PT REMAINS ALERT AND ORIENTED, BUT STATES SHE FEELS LETHARGIC MOST OF SHIFT. BP STABLE. HR HAS BEEN PACED. PT ON 10L NC WITH SATS STAYING AROUND 91%. PT DESATURATES WITH MINIMAL ACTIVITY. PT HAS HAD LOW GRADE FEVER THIS AFTERNOON. PT ABLE TO STAND AND TRANSFER TO BSC WITH 1 ASSIST TO VOID. PT REPOSTIONS HERSELF IN THE BED. WILL CONTINUE TO MONITOR AND REPORT TO ONCOMING BETHANY
[2023-10-13 21:18] VITALS: BP 116/57
[2023-10-14] VITALS (7 sets, daily range): BP systolic 97–126; BP diastolic 45–60
--- NOTE | 2023-10-14 05:53 | NUR ---
SHIFT SUMMARY: PT A&OX4. DENIES FEELINGS OF SOB BUT REPORTS FEELING TIRED. O2 SATS BETWEEN 88-92% ON 11LPM O2. HR PACED IN THE 60'S. DENIES CHEST PAIN/PRESSURE. BP STABLE, SEE PT RECORD. DENIES ANY NAUSEA. PT ABLE TO TRANSFERED TO [facility] FOR VOID. HEPRIN GTT INFUSING ORDRED, SEE EMAR. NO ACUTE CHANGES NOTED DURING THIS SHIFT. CALL LIGHT IN REACH. BED IN LOW POSITION.
[2023-10-14 08:25] LABS: BASOPHILS ABSOLUTE AUTO 0.04 K/mm3 (0.00-0.23); BASOPHILS PERCENT AUTO 0 % (0-2); EOSINOPHILS PERCENT AUTO 1 % (0-6); Hematocrit 37.2 % (33.0-51.0); Hemoglobin 11.9 g/dL (11.5-16.0); IMMATURE GRAN ABSOLUTE AUTO 0.17 K/mm3 (0.00-0.10); IMMATURE GRAN PERCENT AUTO 1 % (0-1); LYMPHOCYTES ABSOLUTE AUTO 1.22 K/mm3 (0.84-5.20); LYMPHOCYTES PERCENT AUTO 9 % (21-46); MONOCYTES ABSOLUTE AUTO 1.45 K/mm3 (0.16-1.47); MONOCYTES PERCENT AUTO 10 % (4-13); Mean Corpuscular HGB 30.6 pg (26.0-34.0); Mean Corpuscular Volume 96 fL (80-100); NEUTROPHILS ABSOLUTE AUTO 11.45 K/mm3 (1.96-9.15); NEUTROPHILS PERCENT AUTO 79 % (41-73); Platelet Count 124 K/mm3 (150-400); RDW Coefficient Variation 15.5 % (11.7-14.2); RDW Standard Deviation 54.8 fL (35.1-46.3); Red Blood Cell Count 3.89 M/mm3 (3.80-5.20); White Blood Cell Count 14.43 K/mm3 (4.00-11.30)
[2023-10-14 08:49] LABS: Albumin, Blood 2.8 g/dL (3.4-5.0); Albumin/Globulin Ratio 0.8 (0.8-1.8); Bun/Creatinine Ratio 27.8 (12.0-20.0); Calcium, Blood 9.1 mg/dL (8.5-10.1); Creatinine, Blood 1.94 mg/dL (0.40-1.00); Globulin, Blood 3.6 g/dL (2.2-4.0); Potassium, Blood 4.7 mmol/L (3.5-5.5); Total Protein, Blood 6.4 g/dL (6.4-8.2)
[2023-10-14 09:04] LABS: Adenovirus Not Detected (NOT DETECT); Coronavirus 229E Not Detected (NOT DETECT); Coronavirus HKU1 Not Detected (NOT DETECT); Coronavirus NL63 Not Detected (NOT DETECT); Coronavirus OC43 Not Detected (NOT DETECT); Human Metapneumovirus Not Detected (NOT DETECT); Human Rhinovirus/Enterovirus Not Detected (NOT DETECT); Influenza A/H1 Not Detected (NOT DETECT); Influenza A/H3 Not Detected (NOT DETECT); SARS-Cov-2 (COVID-19), BioFire Not Detected (NOT DETECT)
[2023-10-14 09:05] LABS: Bordetella pertussis Not Detected (NOT DETECT); Chlamydophila pneumoniae Not Detected (NOT DETECT); Influenza A/2009-H1 Not Detected (NOT DETECT); Influenza B Not Detected (NOT DETECT); Mycoplasma pneumoniae Not Detected (NOT DETECT); Parainfluenza Virus 1 Not Detected (NOT DETECT); Parainfluenza Virus 2 Not Detected (NOT DETECT); Parainfluenza Virus 3 Not Detected (NOT DETECT); Parainfluenza Virus 4 Not Detected (NOT DETECT); Respiratory Syncytial Virus Not Detected (NOT DETECT)
--- NOTE | 2023-10-14 10:17 | NUR ---
AM NOTES: PT ALERT AND ORIENTED X4, ABLE TO MAKE NEEDS KNOWN ANSWERS QUESTIONS APPROPRIATELY. PT UP IN THE RECLINER AT THIS TIME, PT NOT TOLERATING LAYING IN BED DESATS TO 87% ON 11L OF O2, PT C/O SOB WITH EXERTION. VITALS HRR PACED AT 60'S, ABP 115'S, TEMP 99. PT ATE BREAKFAST WITH NO ISSUES. CONTINUES TO DIUERESE. PT C/O SORETHROAT AND MOIST COUGH NO PRODUCITVE RESPI PANEL DONE CAME BACK NEGATIVE. PT ON HEP GTT AT 13U/KG/HR, PT TO TRANSITION TO HOME DOSE ANTICOAGULANT PER PROVIDER. NO OTHER ISSUES AT THIS TIME, CALL LIGHTS IN REACH WILL CONTINUE TO MONITOR
--- NOTE | 2023-10-14 18:38 | NUR ---
PT SUMMARY: PT HAS BEEN ON 11L OF O2 ALL T/O SHIFT WITH HUMIDIFIER. PT STARTED COUGHING UP PINK TINGED SPUTUM BY THE END OF THE SHIFT COUPLE TIMES. PT REMAINS ON HEPARIN GTT AT 13 U/KG/HR. PT HAD A CHEST CT SHOWS PNA/ASPIRATION, PT STARTED ON FLAGYL AND CEFEPIME. PT STILL HAS SOB WITH EXERTION/ORTHOPNEA. PT RECEIVING BREAHTING TX PER RT. FLUTTER VALVE WITH INSTRUCTION OF USE PROVIDED. PT HAS BEEN CALLING APPROPRIATELY, EATING AND DRINKING WITH NO ISSUES, USES BEDSIDE COMMODE FOR TOILETING. NO OTHER ISSUES REPORTED, CALL LIGHTS IN REACH WILL REPORT TO ONCOMING SHIFT
[2023-10-15] VITALS (7 sets, daily range): BP systolic 88–98; BP diastolic 47–80
[2023-10-15 04:01] LABS: BASOPHILS ABSOLUTE AUTO 0.02 K/mm3 (0.00-0.23); BASOPHILS PERCENT AUTO 0 % (0-2); EOSINOPHILS PERCENT AUTO 0 % (0-6); Hematocrit 32.8 % (33.0-51.0); Hemoglobin 10.6 g/dL (11.5-16.0); IMMATURE GRAN ABSOLUTE AUTO 0.16 K/mm3 (0.00-0.10); IMMATURE GRAN PERCENT AUTO 1 % (0-1); LYMPHOCYTES ABSOLUTE AUTO 0.51 K/mm3 (0.84-5.20); LYMPHOCYTES PERCENT AUTO 4 % (21-46); MONOCYTES PERCENT AUTO 2 % (4-13); Mean Corpuscular HGB 30.8 pg (26.0-34.0); Mean Corpuscular HGB Conc 32.3 g/dL (31.5-36.5); Mean Corpuscular Volume 95 fL (80-100); Mean Platelet Volume 10.1 fL (9.1-12.4); NEUTROPHILS ABSOLUTE AUTO 11.27 K/mm3 (1.96-9.15); NEUTROPHILS PERCENT AUTO 93 % (41-73); Platelet Count 129 K/mm3 (150-400); RDW Coefficient Variation 15.3 % (11.7-14.2); Red Blood Cell Count 3.44 M/mm3 (3.80-5.20); White Blood Cell Count 12.16 K/mm3 (4.00-11.30)
[2023-10-15 04:22] LABS: Albumin, Blood 2.4 g/dL (3.4-5.0); Albumin/Globulin Ratio 0.6 (0.8-1.8); Bilirubin, Total 0.7 mg/dL (0.1-1.0); Bun/Creatinine Ratio 31.4 (12.0-20.0); Calcium, Blood 8.7 mg/dL (8.5-10.1); Creatinine, Blood 2.1 mg/dL (0.40-1.00); Globulin, Blood 3.8 g/dL (2.2-4.0); Potassium, Blood 4.7 mmol/L (3.5-5.5); Total Protein, Blood 6.2 g/dL (6.4-8.2)
--- NOTE | 2023-10-15 05:17 | NUR ---
END OF SHIFT NOTE: NO ACUTE EVENTS OVERNIGHT. PT REMAINS ALERT, ORIENTED X4. ABLE TO CALL APPROPRIATELY AND COMMUNICATE NEEDS W/ STAFF. VSS. HR 60'S, PACED. SBP 90-100'S, MAP >65. PT DENIES CHEST PAIN/PRESSURE. SPO2 90% OR GREATER; TITRATED FROM 11L TO 6L NC, TOLERATING WELL. MILDLY PRODUCTIVE COUGH OVERNIGHT W/ PINK TINGED SPUTUM. AFEBRILE. HEPARIN CONTINUES TO INFUSE AT 13 U/KG/HR, BEING MANAGED BY PHARMACY. NO VOIDS OVERNIGHT; BLADDER SCAN COMPLETED, 322 URINE IN BLADDER. PER BLADDER MANAGEMENT PROTOCOL, WILL CONTINUE TO MONITOR. PT REPOSITIONING SELF IN BED FROM SIDE TO SUPINE, ABLE TO ADJUST HOB INDEPENDENTLY. NO OTHER NEEDS AT THIS TIME. CALL LIGHT WITHIN REACH, BED IN LOWEST POSITION. WILL REPORT TO ONCOMING RN.
--- NOTE | 2023-10-15 18:30 | NUR ---
PT SUMMARY: IMPROVED MENTATION TODAY PER FAMILY, PT BETWEEN 6-8L USE OF O2, 8L WITH EXERTION 6L AT REST. VITALS HRR PACED AT 60'S, SBP HAS BEEN ON THE SOFT SIDE >90'S MAP KEPT ABOVE 60'S, PROVIDER IS AWARE. TO MONITOR PT FOR NOW PT NOT SYMPTOMATIC. PT HAS BEEN GETTING UP TO USE THE BSC AND RECLINER FOR MEALS. NO BLOOD TINGED SPUTUM REPORTED FOR THE SHIFT BLOOD THINNER HAS BEEN DISCONTINUED FOR TODAY SCD FOR NOW PER PROVIDER D/T HGB DROPPING. SPEECH EVAL DONE TODAY BARIUM SWALLOW ORDER, NO SPECIALTY DIET AT THIS TIME, REGULAR TEXTURE THIN LIQUIDS. PT DENIES ANY PAIN/DISCOMFORT FOR THE SHIFT, PT HAS BEEN CALLING APPROPRIATELY. NO OTHER ISSUES ENCOUNTERED WILL REPORT TO ONCOMING SHIFT
[2023-10-16 03:11] VITALS: BP 99/50
[2023-10-16 04:18] LABS: BASOPHILS ABSOLUTE AUTO 0.03 K/mm3 (0.00-0.23); BASOPHILS PERCENT AUTO 0 % (0-2); EOSINOPHILS PERCENT AUTO 0 % (0-6); Hematocrit 31.6 % (33.0-51.0); Hemoglobin 10.3 g/dL (11.5-16.0); IMMATURE GRAN ABSOLUTE AUTO 0.17 K/mm3 (0.00-0.10); IMMATURE GRAN PERCENT AUTO 1 % (0-1); LYMPHOCYTES ABSOLUTE AUTO 0.44 K/mm3 (0.84-5.20); LYMPHOCYTES PERCENT AUTO 3 % (21-46); MONOCYTES ABSOLUTE AUTO 0.74 K/mm3 (0.16-1.47); MONOCYTES PERCENT AUTO 4 % (4-13); Mean Corpuscular HGB 30.8 pg (26.0-34.0); Mean Corpuscular HGB Conc 32.6 g/dL (31.5-36.5); Mean Corpuscular Volume 95 fL (80-100); Mean Platelet Volume 10.7 fL (9.1-12.4); NEUTROPHILS PERCENT AUTO 92 % (41-73); Platelet Count 148 K/mm3 (150-400); RDW Coefficient Variation 15.3 % (11.7-14.2); RDW Standard Deviation 53.1 fL (35.1-46.3); Red Blood Cell Count 3.34 M/mm3 (3.80-5.20); White Blood Cell Count 16.98 K/mm3 (4.00-11.30)
[2023-10-16 04:43] LABS: Albumin, Blood 2.4 g/dL (3.4-5.0); Albumin/Globulin Ratio 0.7 (0.8-1.8); Bilirubin, Total 0.6 mg/dL (0.1-1.0); Bun/Creatinine Ratio 42.3 (12.0-20.0); Calcium, Blood 8.5 mg/dL (8.5-10.1); Creatinine, Blood 2.01 mg/dL (0.40-1.00); Globulin, Blood 3.4 g/dL (2.2-4.0); Potassium, Blood 4.8 mmol/L (3.5-5.5); Total Protein, Blood 5.8 g/dL (6.4-8.2)
--- NOTE | 2023-10-16 05:04 | NUR ---
END OF SHIFT NOTE: NO ACUTE EVENTS OVERNIGHT. PT REMAINS ALERT, ORIENTED X4. ABLE TO CALL APPROPRIATELY AND COMMUNICATE NEEDS W/ STAFF. VSS. HR 60'S, PACED. SBP 80-90'S, MAP >60. PER DAYSHIFT NOTE, IS AWARE OF SOFT BP'S. ASYMPTOMATIC AT THIS TIME. PT DENIES CHEST PAIN/PRESSURE. SPO2 90% OR GREATER ON 4-6L VIA NC; MULTIPLE DESATS WHILE SLEEPING, O2 UP TO 7-8L W/ RECOVERY. MILDLY PRODUCTIVE COUGH OVERNIGHT W/ SCANT SPUTUM PRODUCTION. AFEBRILE. ABLE TO TRANSFER FROM CHAIR TO BED W/ FWW AND 1P STAFF ASSIST. UP TO BSC THIS AM, 575 ML OUTPUT. TOLERATING PO INTAKE WELL W/O COUGHING OR OTHER SIGNS OF ASPIRATION AFTER SWALLOWING. PT REPOSITIONING SELF IN BED AND ADJUSTING HOB INDEPENDENTLY. NO OTHER NEEDS AT THIS TIME. CALL LIGHT WITHIN REACH, BED IN LOWEST POSITION. WILL REPORT TO ONCOMING RN.
[2023-10-16 07:28] VITALS: BP 98/53
--- NOTE | 2023-10-16 08:40 | NUR ---
NURSE NOTE PER DR SWANN. PATIENT CAN HAVE COFFEE WITH DIET.
[2023-10-16 15:33] VITALS: BP 98/49
--- NOTE | 2023-10-16 16:55 | NUR ---
SHIFT SUMMARY PATIENT IS ALERT AND ORIENTED. PATIENT HAS HAD NO ACUTE EVENTS THIS SHIFT. VITAL SIGNS REVIEWED. PATIENT HAS BEEN CLEARED BY THERAPY TO USE THE BATHROOM WITH STAND BY ASSISTANCE. PATIENT HAS HAD NO COMPLAINTS OF PAIN, NAUSEA, SOB OR VOMITTING THIS SHIFT. PATIENTS FAMILY HAS VISITED PATIENT TODAY. ABX AND MEDICATIONS INFUSED ORDERED. BED IN LOCKED AND LOWEST POSITION. CALL LIGHT IN PLACE. WILL MONITOR UNTIL SHIFT CHANGE.
[2023-10-16 18:05] VITALS: BP 104/44
[2023-10-16 19:32] VITALS: BP 110/53
[2023-10-17 00:30] VITALS: BP 99/50
[2023-10-17 03:22] VITALS: BP 104/54
[2023-10-17 04:20] LABS: BASOPHILS ABSOLUTE AUTO 0.02 K/mm3 (0.00-0.23); BASOPHILS PERCENT AUTO 0 % (0-2); EOSINOPHILS PERCENT AUTO 0 % (0-6); Hematocrit 33.8 % (33.0-51.0); IMMATURE GRAN ABSOLUTE AUTO 0.18 K/mm3 (0.00-0.10); IMMATURE GRAN PERCENT AUTO 1 % (0-1); LYMPHOCYTES ABSOLUTE AUTO 0.43 K/mm3 (0.84-5.20); LYMPHOCYTES PERCENT AUTO 3 % (21-46); MONOCYTES ABSOLUTE AUTO 0.59 K/mm3 (0.16-1.47); MONOCYTES PERCENT AUTO 4 % (4-13); Mean Corpuscular HGB 31.1 pg (26.0-34.0); Mean Corpuscular HGB Conc 32.5 g/dL (31.5-36.5); Mean Corpuscular Volume 96 fL (80-100); Mean Platelet Volume 10.3 fL (9.1-12.4); NEUTROPHILS ABSOLUTE AUTO 13.93 K/mm3 (1.96-9.15); NEUTROPHILS PERCENT AUTO 92 % (41-73); Platelet Count 183 K/mm3 (150-400); RDW Coefficient Variation 15.4 % (11.7-14.2); RDW Standard Deviation 53.8 fL (35.1-46.3); Red Blood Cell Count 3.54 M/mm3 (3.80-5.20); White Blood Cell Count 15.15 K/mm3 (4.00-11.30)
[2023-10-17 04:37] LABS: Albumin, Blood 2.7 g/dL (3.4-5.0); Albumin/Globulin Ratio 0.7 (0.8-1.8); Bilirubin, Total 0.9 mg/dL (0.1-1.0); Bun/Creatinine Ratio 50.3 (12.0-20.0); Calcium, Blood 8.8 mg/dL (8.5-10.1); Creatinine, Blood 1.81 mg/dL (0.40-1.00); Globulin, Blood 3.7 g/dL (2.2-4.0); Potassium, Blood 4.6 mmol/L (3.5-5.5); Total Protein, Blood 6.4 g/dL (6.4-8.2)
--- NOTE | 2023-10-17 06:02 | NUR ---
END OF SHIFT NOTE: NO ACUTE EVENTS OVERNIGHT. PT REMAINS ALERT, ORIENTED X4. ABLE TO CALL APPROPRIATELY AND COMMUNICATE NEEDS W/ STAFF. VSS. HR 60'S, PACED. SBP 90-110'S MAP >60. MD IS AWARE OF SOFT BP S. ASYMPTOMATIC AT THIS TIME. PT DENIES CHEST PAIN/PRESSURE. SPO2 90% OR GREATER ON 2-3L VIA NC. COUGH W/O SPUTUM PRODUCTION OVERNIGHT. AFEBRILE. ABLE TO TRANSFER FROM CHAIR TO BED & TO RESTROOM W/ FWW. TOLERATING PO INTAKE WELL W/O COUGHING OR OTHER SIGNS OF ASPIRATION. PT REPOSITIONING SELF IN BED AND ADJUSTING HOB INDEPENDENTLY. NO OTHER NEEDS AT THIS TIME. CALL LIGHT WITHIN REACH, BED IN LOWEST POSITION. WILL REPORT TO ONCOMING RN.
[2023-10-17 07:53] VITALS: BP 100/88
--- NOTE | 2023-10-17 09:02 | NUR ---
TELEPHONE CALL TO DR TINEO R/T LOSS OF IV ACCESS, 2 ABX DUE THIS AM. NEW ORDER: NO IV ACCESS NEEDED.
[2023-10-17] MEDS ORDERED: CEFD300 PO (12:51)
[2023-10-17] MEDS ORDERED: GUAI600T33 PO (12:51)
[2023-10-17] MEDS ORDERED: Prednisone10 MG PO (12:53)
--- NOTE | 2023-10-17 14:40 | NUR ---
DISCHARGE SUMMARY DC INS PROVIDED. PT AND NIECE REP UNDERSTANDING THOSE INSTRUCTIONS; MEDS FAXED TO [facility]. LEFT FLOOR VIA WC WITH SCUDDING INSPECTOR TO GO HOME WITH NIECE WITH ALL PERSONAL POSSESSIONS INCLUDING DC PACKET.
== END 2023-10-17 13:40 | disposition home or self-care (01) | DRG 291 ==
LOC: ER 20:09 → PCU 10-13 00:49
PROVIDERS: Emergency Medicine; Family Medicine; Student in an Organized Health Care Education/Training Program; ADMIT Internal Medicine
DX: I13.0 Hypertensive heart and chronic kidney disease with heart failure and stage 1 through stage 4 chronic kidney disease, or unspecified chronic kidney disease (principal); G92.8 Other toxic encephalopathy; I50.33 Acute on chronic diastolic (congestive) heart failure; J18.9 Pneumonia, unspecified organism; J96.21 Acute and chronic respiratory failure with hypoxia; N17.9 Acute kidney failure, unspecified; J44.0 Chronic obstructive pulmonary disease with (acute) lower respiratory infection; J44.1 Chronic obstructive pulmonary disease with (acute) exacerbation; E87.29 Other acidosis; I71.40 Abdominal aortic aneurysm, without rupture, unspecified; D63.1 Anemia in chronic kidney disease; I48.91 Unspecified atrial fibrillation; I25.10 Atherosclerotic heart disease of native coronary artery without angina pectoris; I35.0 Nonrheumatic aortic (valve) stenosis; N18.30 Chronic kidney disease, stage 3 unspecified; I27.20 Pulmonary hypertension, unspecified; F17.210 Nicotine dependence, cigarettes, uncomplicated; I49.5 Sick sinus syndrome; K21.9 Gastro-esophageal reflux disease without esophagitis; G25.81 Restless legs syndrome; Z95.0 Presence of cardiac pacemaker; Z95.5 Presence of coronary angioplasty implant and graft; Z99.81 Dependence on supplemental oxygen; M16.11 Unilateral primary osteoarthritis, right hip; Z88.0 Allergy status to penicillin; Z88.2 Allergy status to sulfonamides; Z88.5 Allergy status to narcotic agent; Z88.8 Allergy status to other drugs, medicaments and biological substances; Z79.82 Long term (current) use of aspirin; Z79.51 Long term (current) use of inhaled steroids; Z79.899 Other long term (current) drug therapy; Z86.73 Personal history of transient ischemic attack (TIA), and cerebral infarction without residual deficits; Z87.19 Personal history of other diseases of the digestive system; Z90.49 Acquired absence of other specified parts of digestive tract; Z98.890 Other specified postprocedural states
CPT/HCPCS: 0202U; 36415; 71045; 71250; 73502; 78580; 80053; 82803; 82947; 84145; 84484; 85025; 85520; 85610; 92610; 93005; 93010; 93306; 94640; 94664; 94760; 94761; 94762; 97112; 97161; 97165; 97530; 97535; 99285-25; A9270; A9540; J0692; J1644; J1940; J7050; J7512

== ENCOUNTER 2023-11-24 10:08 | Inpatient (IN) | payer MEDICARE, OTHER ==
[~2023-11-24] VITALS: Ht 147.3 cm; Wt 62.5 kg
[~2023-11-24 10:08] MED LIST changes: +CEFD300 PO; +GUAI600T33 PO; +Prednisone10 MG PO
[2023-11-24 11:33] LABS: Bicarbonate Venous 26.8 mmol/L (24.0-30.0); PCO2 Venous 52.4 mmHg (38-42); pH Blood Venous 7.36 (7.34-7.37)
[2023-11-24 11:36] LABS: BASOPHILS ABSOLUTE AUTO 0.05 K/mm3 (0.00-0.23); BASOPHILS PERCENT AUTO 1 % (0-2); EOSINOPHILS ABSOLUTE AUTO 0.06 K/mm3 (0.00-0.68); EOSINOPHILS PERCENT AUTO 1 % (0-6); Hematocrit 41.9 % (33.0-51.0); Hemoglobin 12.7 g/dL (11.5-16.0); IMMATURE GRAN PERCENT AUTO 2 % (0-1); LYMPHOCYTES ABSOLUTE AUTO 1.03 K/mm3 (0.84-5.20); LYMPHOCYTES PERCENT AUTO 12 % (21-46); MONOCYTES ABSOLUTE AUTO 0.71 K/mm3 (0.16-1.47); MONOCYTES PERCENT AUTO 8 % (4-13); Mean Corpuscular HGB 30.6 pg (26.0-34.0); Mean Corpuscular HGB Conc 30.3 g/dL (31.5-36.5); Mean Corpuscular Volume 101 fL (80-100); Mean Platelet Volume 10.4 fL (9.1-12.4); NEUTROPHILS ABSOLUTE AUTO 6.88 K/mm3 (1.96-9.15); NEUTROPHILS PERCENT AUTO 77 % (41-73); Platelet Count 139 K/mm3 (150-400); RDW Coefficient Variation 17.1 % (11.7-14.2); RDW Standard Deviation 63.6 fL (35.1-46.3); Red Blood Cell Count 4.15 M/mm3 (3.80-5.20); White Blood Cell Count 8.93 K/mm3 (4.00-11.30)
[2023-11-24 11:43] LABS: Albumin/Globulin Ratio 0.7 (0.8-1.8); Bilirubin, Total 0.9 mg/dL (0.1-1.0); Bun/Creatinine Ratio 26.5 (12.0-20.0); Calcium, Blood 9.9 mg/dL (8.5-10.1); Creatinine, Blood 1.47 mg/dL (0.40-1.00); Globulin, Blood 4.2 g/dL (2.2-4.0); Potassium, Blood 5.2 mmol/L (3.5-5.5); Total Protein, Blood 7.2 g/dL (6.4-8.2)
[2023-11-24 12:36] LABS: Influenza A Negative (NEGATIVE); Influenza B Negative (NEGATIVE)
[2023-11-24 12:42] LABS: SARS-Cov-2 (COVID-19) PCR, MMC NEGATIVE (NEGATIVE)
[2023-11-24 18:42] VITALS: BP 119/54
[2023-11-24 19:13] VITALS: BP 112/57
--- NOTE | 2023-11-25 04:05 | NUR ---
SHIFT SUMMARY TRUONG ARRIVED TO THE UNIT JUST PRIOR TO START OF SHIFT. PT ALERT AND FULLY ORIENTED ON ASSESSMENT. ADMIT COMPLETE. PT ON 5L 02 VIA NC SATTING MID 90'S. TRUONG IS HERE FOR CHF EXACERBATION. SHE IS A 1 PERSON ASSIST FOR AMBULATION. EXTENSIVE BRUISING TO LATERAL RIGHT HIP FROM FALLING. NO ACUTE EVENTS TONIGHT, NO WORSENING SYMPTOMS. PT SLEEPING IN BED AT A LOW POSITION W/ CALL LIGHT IN REACH.
[2023-11-25 04:18] VITALS: BP 114/56
[2023-11-25 04:59] LABS: BASOPHILS ABSOLUTE AUTO 0.04 K/mm3 (0.00-0.23); BASOPHILS PERCENT AUTO 1 % (0-2); EOSINOPHILS PERCENT AUTO 0 % (0-6); Hematocrit 42.3 % (33.0-51.0); Hemoglobin 12.8 g/dL (11.5-16.0); IMMATURE GRAN ABSOLUTE AUTO 0.13 K/mm3 (0.00-0.10); IMMATURE GRAN PERCENT AUTO 2 % (0-1); LYMPHOCYTES ABSOLUTE AUTO 0.58 K/mm3 (0.84-5.20); LYMPHOCYTES PERCENT AUTO 8 % (21-46); MONOCYTES PERCENT AUTO 1 % (4-13); Mean Corpuscular HGB 30.5 pg (26.0-34.0); Mean Corpuscular HGB Conc 30.3 g/dL (31.5-36.5); Mean Corpuscular Volume 101 fL (80-100); Mean Platelet Volume 10.1 fL (9.1-12.4); NEUTROPHILS ABSOLUTE AUTO 6.46 K/mm3 (1.96-9.15); NEUTROPHILS PERCENT AUTO 88 % (41-73); Platelet Count 153 K/mm3 (150-400); RDW Coefficient Variation 16.4 % (11.7-14.2); RDW Standard Deviation 61.4 fL (35.1-46.3); White Blood Cell Count 7.31 K/mm3 (4.00-11.30)
[2023-11-25 05:23] LABS: Bun/Creatinine Ratio 30.1 (12.0-20.0); Creatinine, Blood 1.63 mg/dL (0.40-1.00); Potassium, Blood 5.1 mmol/L (3.5-5.5)
[2023-11-25 07:47] VITALS: BP 119/59
[2023-11-25 15:58] VITALS: BP 121/58
[2023-11-25 18:01] VITALS: BP 123/50
--- NOTE | 2023-11-25 19:34 | NUR ---
RN TO RN REPORT RECEVED AT 5881. PATIENT IN NO APPARENT DISTRESS. MEDICATIONS GIVEN PER EMAR. METOPROLOL HELD DUE TO HR 59, BP 120S/50. DR WHEELER ORDERED TO HOLD METOPROLOL BUT GIVE LASIX. LUNGS WERE WHEEZY BUT OTHERWISE CLEAR. NO SHORTNESS OF BREATH. NO EDEMA TO ANKLES. PATIENT DOES HAVE MOIST COUGH, NO SPUTUM AT THIS TIME. BED IN LOW POSITION, CALL LIGHT IN REACH. PATIENT CALLS APPROPRIATELY AND AWARE OF LIMITATIONS.
[2023-11-25 20:17] VITALS: BP 119/50
[2023-11-26] VITALS (8 sets, daily range): BP systolic 101–126; BP diastolic 49–74
--- NOTE | 2023-11-26 05:23 | NUR ---
Shift Summary Report Ms. Wagner is alert and oriented x 4. She slept most of the night. Respirations regular and unlabored. She is on oxygen per NC at 3L. She has bilateral wheezes. She has an IV in her right wrist that flushes without difficulty. She does complain about the location of the IV. She is on tele with an atrial paced rhythm in the lower 60s. Her bed is in low position and call light is in reach.
[2023-11-26 06:49] LABS: Bun/Creatinine Ratio 37.7 (12.0-20.0); Calcium, Blood 9.5 mg/dL (8.5-10.1); Creatinine, Blood 1.59 mg/dL (0.40-1.00); Potassium, Blood 4.3 mmol/L (3.5-5.5)
--- NOTE | 2023-11-26 20:03 | NUR ---
SHIFT SUMMARY PAITIENT UP AD CHRISTY JENSpencer DISHA IN ROOM. SHE IS AOX4 COOPERATIVE WITH CARE. THIS EVENING BP 100S/50S, PATIENT COLD ALL DAY, DR WHEELER NOTIFIED AND LASIX NIGHT DOSE HELD AND DECREASED TO DAILY, METOPROLOL HELD AND METOLAZONE DISCONTINUED. SHE DENIES ANY DIZZINESS OR SHORTNESS OF BREATH. BED IN LOW POSITION, CALL LIGHT IN REACH. SHE CALLS APPROPRIATELY.
--- NOTE | 2023-11-27 04:50 | NUR ---
SHIFT SUMMARY: PT SLEPT MOST OF THE NIGHT. SHE DID WAKE FOR ABOUT AN HOUR AND SAT AT THE EDGE OF HER BED. PT DENIED PAIN OR DISCOMFORT. NO ACUTE CHANGES THROUGH THE NIGHT. NO COUGHING NOTED TONIGHT. PT ON 2L O2. TELE PACED AT 66. 11/27/23 KIM MONTES RN
[2023-11-27 05:09] VITALS: BP 137/65
[2023-11-27 05:57] LABS: BASOPHILS ABSOLUTE AUTO 0.02 K/mm3 (0.00-0.23); BASOPHILS PERCENT AUTO 0 % (0-2); EOSINOPHILS ABSOLUTE AUTO 0.01 K/mm3 (0.00-0.68); EOSINOPHILS PERCENT AUTO 0 % (0-6); Hematocrit 40.8 % (33.0-51.0); IMMATURE GRAN ABSOLUTE AUTO 0.12 K/mm3 (0.00-0.10); IMMATURE GRAN PERCENT AUTO 1 % (0-1); LYMPHOCYTES ABSOLUTE AUTO 0.95 K/mm3 (0.84-5.20); LYMPHOCYTES PERCENT AUTO 6 % (21-46); MONOCYTES ABSOLUTE AUTO 0.99 K/mm3 (0.16-1.47); MONOCYTES PERCENT AUTO 7 % (4-13); Mean Corpuscular HGB 30.6 pg (26.0-34.0); Mean Corpuscular HGB Conc 31.9 g/dL (31.5-36.5); Mean Platelet Volume 9.8 fL (9.1-12.4); NEUTROPHILS ABSOLUTE AUTO 12.93 K/mm3 (1.96-9.15); NEUTROPHILS PERCENT AUTO 86 % (41-73); Platelet Count 154 K/mm3 (150-400); RDW Coefficient Variation 16.6 % (11.7-14.2); RDW Standard Deviation 58.7 fL (35.1-46.3); Red Blood Cell Count 4.25 M/mm3 (3.80-5.20); White Blood Cell Count 15.02 K/mm3 (4.00-11.30)
[2023-11-27 06:13] LABS: Mean Corpuscular Volume 96 fL (80-100)
[2023-11-27 06:14] LABS: Bun/Creatinine Ratio 39.2 (12.0-20.0); Calcium, Blood 9.8 mg/dL (8.5-10.1); Creatinine, Blood 1.66 mg/dL (0.40-1.00); Potassium, Blood 4.5 mmol/L (3.5-5.5)
[2023-11-27 08:20] VITALS: BP 125/88
[2023-11-27 15:42] VITALS: BP 107/72
--- NOTE | 2023-11-27 18:33 | NUR ---
PATIENT A/OX4, UP INDEPENDENTLY IN ROOM. VSS, ON 2LO2 TO MAINTAIN SATS. 1-3L O2 AT BASELINE. PATIENT FEELS THAT BREATHING HAS IMPROVED. NO NEW CONCERNS THIS SHIFT.
[2023-11-27 19:09] VITALS: BP 103/50
[2023-11-28 03:11] VITALS: BP 110/70
--- NOTE | 2023-11-28 03:34 | NUR ---
Shift Summary: Patient is alert and oriented x 4. Respirations regular and unlabored. Lung sounds clear. She is on oxygen at 2 L per NC which is her baseline at home. She has an IV in her right wrist that flushes without difficulty. She has active bowel sounds and says that she had a BM earlier today. Patient is independently ambulatory in her room. She uses a front wheel walker. She is on tele with an atrial paced rhythm at 76. No complaints voiced. Bed in low position with call light in reach.
[2023-11-28 07:46] VITALS: BP 131/83
[2023-11-28 09:13] LABS: Bun/Creatinine Ratio 41.6 (12.0-20.0); Calcium, Blood 9.5 mg/dL (8.5-10.1); Creatinine, Blood 1.37 mg/dL (0.40-1.00); Potassium, Blood 4.5 mmol/L (3.5-5.5)
[2023-11-28] MEDS ORDERED: METO50 PO (11:13)
[2023-11-28] MEDS ORDERED: Primidone50 MG PO (11:14)
[2023-11-28] MEDS ORDERED: LOSA25 PO (11:15)
[2023-11-28] MEDS ORDERED: Chantix1 MG PO (11:15)
[2023-11-28] MEDS ORDERED: SPIRIVA RESPIMAT4 G3 INH (11:17)
--- NOTE | 2023-11-28 14:21 | NUR ---
PATIENT D/C'D TO HOME WITH [place]. DC INSTRUCTIONS AND EDUCATION DICUSSED WITH PATIENT AND COPY PROVIDED. HOME O2 SET UP AND PATIENT INSTRUCTED THAT 3LO2 NEEDED WITH ACTIVITY AND 2LO2 AT REST. PATIENT HAS FOLLOW UP APPOINTMENT ALREADY SET UP WITH PCP. PATIENT DENIES ANY FURTHER QUESTIONS OR CONCERNS.
== END 2023-11-28 14:20 | disposition home or self-care (01) | DRG 291 ==
LOC: ER 10:08 → MEDS 18:12
PROVIDERS: Emergency Medicine; Internal Medicine; ADMIT Internal Medicine
DX: I13.0 Hypertensive heart and chronic kidney disease with heart failure and stage 1 through stage 4 chronic kidney disease, or unspecified chronic kidney disease (principal); I50.33 Acute on chronic diastolic (congestive) heart failure; J96.21 Acute and chronic respiratory failure with hypoxia; J96.22 Acute and chronic respiratory failure with hypercapnia; J44.1 Chronic obstructive pulmonary disease with (acute) exacerbation; Z51.5 Encounter for palliative care; I27.20 Pulmonary hypertension, unspecified; G25.81 Restless legs syndrome; K21.9 Gastro-esophageal reflux disease without esophagitis; M19.90 Unspecified osteoarthritis, unspecified site; D72.829 Elevated white blood cell count, unspecified; N18.30 Chronic kidney disease, stage 3 unspecified; I35.0 Nonrheumatic aortic (valve) stenosis; I71.40 Abdominal aortic aneurysm, without rupture, unspecified; Z86.73 Personal history of transient ischemic attack (TIA), and cerebral infarction without residual deficits; Z87.19 Personal history of other diseases of the digestive system; Z11.52 Encounter for screening for COVID-19; Z98.890 Other specified postprocedural states; Z90.49 Acquired absence of other specified parts of digestive tract; Z79.51 Long term (current) use of inhaled steroids; Z79.899 Other long term (current) drug therapy; Z79.82 Long term (current) use of aspirin; Z88.8 Allergy status to other drugs, medicaments and biological substances; Z88.0 Allergy status to penicillin; Z88.2 Allergy status to sulfonamides; Z91.041 Radiographic dye allergy status; Z87.891 Personal history of nicotine dependence
CPT/HCPCS: 36415; 71046; 80048; 80053; 82803; 83880; 84484; 85025; 87804; 87807; 93005; 93010; 94640; 94664; 94760; 94761; 96374; 96375; 99285-25; A9270; J1650; J1940; J2930; J7512; U0002